=== PATIENT | male | born 1950 | race Asian ===

== ENCOUNTER 2016-09-14 10:40 | Outpatient (CLI) | payer OTHER ==
[2016-09-14 10:59] LABS: PLATELET COUNT 135 K/uL (142-355)
== END 2016-09-14 11:40 | disposition home or self-care (01) ==
LOC: LABW 10:40
PROVIDERS: Internal Medicine Nephrology
DX: N18.3 Chronic kidney disease, stage 3 (moderate) (principal); D63.1 Anemia in chronic kidney disease
CPT/HCPCS: 36415; 85027

== ENCOUNTER 2016-09-21 09:40 | Outpatient (CLI) | payer OTHER ==
[2016-09-21 10:26] LABS: PLATELET COUNT 132 K/uL (142-355)
== END 2016-09-21 21:26 | disposition home or self-care (01) ==
LOC: LABW 09:40
PROVIDERS: Internal Medicine Nephrology
DX: N18.3 Chronic kidney disease, stage 3 (moderate) (principal); D63.1 Anemia in chronic kidney disease
CPT/HCPCS: 36415; 85027

== ENCOUNTER 2016-09-28 09:38 | Outpatient (CLI) | payer OTHER ==
[2016-09-28 10:42] LABS: PLATELET COUNT 119 K/uL (142-355)
== END 2016-09-28 19:13 | disposition home or self-care (01) ==
LOC: LABW 09:38
PROVIDERS: Internal Medicine Nephrology
DX: N18.3 Chronic kidney disease, stage 3 (moderate) (principal); D63.1 Anemia in chronic kidney disease
CPT/HCPCS: 36415; 85027

== ENCOUNTER 2016-10-05 10:46 | Outpatient (CLI) | payer OTHER ==
[2016-10-05 11:19] LABS: PLATELET COUNT 134 K/uL (142-355)
== END 2016-10-05 19:08 | disposition home or self-care (01) ==
LOC: LABW 10:46
PROVIDERS: Internal Medicine Nephrology
DX: N18.3 Chronic kidney disease, stage 3 (moderate) (principal); D63.1 Anemia in chronic kidney disease
CPT/HCPCS: 36415; 85027

== ENCOUNTER 2016-10-12 12:32 | Outpatient (CLI) | payer OTHER ==
[2016-10-12 12:45] LABS: PLATELET COUNT 127 K/uL (142-355)
== END 2016-10-12 22:05 | disposition home or self-care (01) ==
LOC: LABW 12:32
PROVIDERS: Internal Medicine Nephrology
DX: N18.3 Chronic kidney disease, stage 3 (moderate) (principal); D63.1 Anemia in chronic kidney disease
CPT/HCPCS: 36415; 85027

== ENCOUNTER 2016-10-19 09:05 | Outpatient (CLI) | payer OTHER ==
[2016-10-19 09:19] LABS: PLATELET COUNT 113 K/uL (142-355)
== END 2016-10-19 19:01 | disposition home or self-care (01) ==
LOC: LABW 09:05
PROVIDERS: Internal Medicine Nephrology
DX: N18.3 Chronic kidney disease, stage 3 (moderate) (principal); D63.1 Anemia in chronic kidney disease
CPT/HCPCS: 36415; 85027

== ENCOUNTER 2016-10-26 10:32 | Outpatient (CLI) | payer OTHER ==
[2016-10-26 10:55] LABS: PLATELET COUNT 115 K/uL (142-355)
== END 2016-10-26 19:14 | disposition home or self-care (01) ==
LOC: LABW 10:32
PROVIDERS: Internal Medicine Nephrology
DX: N18.3 Chronic kidney disease, stage 3 (moderate) (principal); D63.1 Anemia in chronic kidney disease
CPT/HCPCS: 36415; 85027

== ENCOUNTER 2016-11-03 08:59 | Outpatient (CLI) | payer OTHER ==
[2016-11-03 09:54] LABS: PLATELET COUNT 115 K/uL (142-355)
== END 2016-11-03 19:28 | disposition home or self-care (01) ==
LOC: LABW 08:59 → US 08:59 → LABW 19:28
PROVIDERS: Internal Medicine Nephrology
DX: N18.3 Chronic kidney disease, stage 3 (moderate) (principal); D63.1 Anemia in chronic kidney disease; R22.1 Localized swelling, mass and lump, neck; M54.2 Cervicalgia
CPT/HCPCS: 36415; 85027

== ENCOUNTER 2016-11-27 09:36 | Outpatient (CLI) | payer OTHER ==
[2016-11-27 10:04] LABS: PLATELET COUNT 195 K/uL (142-355)
== END 2016-11-27 19:20 | disposition home or self-care (01) ==
LOC: LABW 09:36
PROVIDERS: Internal Medicine Nephrology
DX: N18.3 Chronic kidney disease, stage 3 (moderate) (principal); D63.1 Anemia in chronic kidney disease
CPT/HCPCS: 36415; 85027

== ENCOUNTER 2016-12-27 09:56 | Outpatient (CLI) | payer OTHER ==
[2016-12-27 10:04] LABS: PLATELET COUNT 128 K/uL (142-355)
== END 2016-12-27 19:05 | disposition home or self-care (01) ==
LOC: LABW 09:56
PROVIDERS: Internal Medicine Nephrology
DX: N18.3 Chronic kidney disease, stage 3 (moderate) (principal); D63.1 Anemia in chronic kidney disease
CPT/HCPCS: 36415; 85027

== ENCOUNTER 2017-02-01 10:51 | Outpatient (CLI) | payer OTHER ==
[2017-02-01 11:57] LABS: PLATELET COUNT 117 K/uL (142-355)
== END 2017-02-01 19:48 | disposition home or self-care (01) ==
LOC: LABW 10:51
PROVIDERS: Internal Medicine Nephrology
DX: N18.3 Chronic kidney disease, stage 3 (moderate) (principal); D63.1 Anemia in chronic kidney disease
CPT/HCPCS: 36415; 85027

== ENCOUNTER 2017-10-30 14:40 | Outpatient (CLI) | payer OTHER ==
[2017-10-30 15:16] LABS: PLATELET COUNT 130 K/uL (142-355)
== END 2017-10-30 19:51 | disposition home or self-care (01) ==
LOC: LAB 14:40
PROVIDERS: Nurse Practitioner Family
DX: I10 Essential (primary) hypertension (principal); G47.09 Other insomnia; F41.8 Other specified anxiety disorders; K21.9 Gastro-esophageal reflux disease without esophagitis; Z79.899 Other long term (current) drug therapy; Z51.81 Encounter for therapeutic drug level monitoring
CPT/HCPCS: 80053; 80061; 83036; 84436; 84443; 85027

== ENCOUNTER 2018-07-23 09:10 | Outpatient (CLI) | payer OTHER | END 2018-07-23 22:04 | disposition home or self-care (01) | LOC: US 09:10 | DX: N19 Unspecified kidney failure (principal) ==

== ENCOUNTER 2018-08-30 09:52 | Emergency (ER) | payer OTHER ==
[~2018-08-30] VITALS: Ht 172.7 cm; Wt 113.4 kg
[2018-08-30 10:26] LABS: PLATELET COUNT 124 K/uL (142-355)
[2018-08-30 10:41] LABS: POTASSIUM 2.6 mmol/L (3.6-5.2)
[2018-08-30 14:38] VITALS: BP 156/106; TEMP 98.6
== END 2018-08-30 14:38 | disposition home or self-care (01) ==
LOC: ED 09:52
PROVIDERS: Emergency Medicine
DX: I10 Essential (primary) hypertension (principal); R51 Headache
CPT/HCPCS: 36415; 80053; 85027; 99283

== ENCOUNTER 2019-01-15 10:01 | Outpatient (CLI) | payer OTHER | END 2019-01-15 22:24 | disposition home or self-care (01) | LOC: RAD 10:01 | DX: M54.2 Cervicalgia (principal); R22.1 Localized swelling, mass and lump, neck; N12 Tubulo-interstitial nephritis, not specified as acute or chronic ==

== ENCOUNTER 2019-02-20 09:10 | Outpatient (CLI) | payer OTHER ==
[2019-02-20 09:57] LABS: POTASSIUM 3.6 mmol/L (3.6-5.2)
[2019-02-20 09:58] LABS: PLATELET COUNT 116 K/uL (142-355)
== END 2019-02-20 19:41 | disposition home or self-care (01) ==
LOC: LABW 09:10
PROVIDERS: Internal Medicine Nephrology
DX: I12.9 Hypertensive chronic kidney disease with stage 1 through stage 4 chronic kidney disease, or unspecified chronic kidney disease (principal); N18.3 Chronic kidney disease, stage 3 (moderate); C61 Malignant neoplasm of prostate; M10.9 Gout, unspecified; F41.8 Other specified anxiety disorders; F32.89 Other specified depressive episodes; N13.8 Other obstructive and reflux uropathy
CPT/HCPCS: 36415; 80053; 82570; 82652; 83970; 84100; 84155; 84550; 85027

== ENCOUNTER 2019-10-31 10:24 | Emergency (ER) | payer OTHER ==
[~2019-10-31] VITALS: Ht 172.7 cm; Wt 108.9 kg
[2019-10-31 11:10] LABS: PLATELET COUNT 136 K/uL (142-355)
[2019-10-31 11:21] LABS: POTASSIUM 2.6 mmol/L (3.6-5.2)
[2019-10-31 12:58] VITALS: BP 129/87; TEMP 98.1
== END 2019-10-31 12:58 | disposition home or self-care (01) ==
LOC: ED 10:24
PROVIDERS: Family Medicine
DX: I10 Essential (primary) hypertension (principal); E87.6 Hypokalemia; M62.838 Other muscle spasm; N18.9 Chronic kidney disease, unspecified
CPT/HCPCS: 80053; 81000; 85027; 85379; 99283

== ENCOUNTER 2019-11-06 14:26 | Outpatient (CLI) | payer OTHER ==
[2019-11-06 15:07] LABS: PLATELET COUNT 101 K/uL (142-355)
[2019-11-06 15:31] LABS: POTASSIUM 3.2 mmol/L (3.6-5.2)
== END 2019-11-06 20:55 | disposition home or self-care (01) ==
LOC: LAB 14:26
PROVIDERS: Nurse Practitioner Family
DX: Z00.00 Encounter for general adult medical examination without abnormal findings (principal); R79.89 Other specified abnormal findings of blood chemistry; I10 Essential (primary) hypertension; K21.9 Gastro-esophageal reflux disease without esophagitis; F41.8 Other specified anxiety disorders; G47.09 Other insomnia; M25.50 Pain in unspecified joint; E55.9 Vitamin D deficiency, unspecified; F32.9 Major depressive disorder, single episode, unspecified; Z79.899 Other long term (current) drug therapy
CPT/HCPCS: 80053; 80061; 82306; 83036; 84439; 84443; 84481; 85027

== ENCOUNTER 2020-03-11 11:24 | Outpatient (CLI) | payer OTHER | END 2020-03-11 20:46 | disposition home or self-care (01) | LOC: LABW 11:24 | DX: E87.6 Hypokalemia (principal) | CPT/HCPCS: 36415; 84132 ==

== ENCOUNTER 2021-01-03 11:16 | Outpatient (CLI) | payer OTHER ==
[2021-01-03 11:46] LABS: PLATELET COUNT 99 K/uL (142-355)
[2021-01-03 11:52] LABS: POTASSIUM 2.8 mmol/L (3.6-5.2)
== END 2021-01-03 19:33 | disposition home or self-care (01) ==
LOC: LABW 11:16
PROVIDERS: ATTEND Specialist
DX: N19 Unspecified kidney failure (principal)
CPT/HCPCS: 36415; 80048; 85027

== ENCOUNTER 2021-05-03 11:51 | Outpatient (CLI) | payer OTHER ==
[2021-05-03 12:20] LABS: PLATELET COUNT 110 K/uL (142-355)
[2021-05-03 12:57] LABS: POTASSIUM 2.8 mmol/L (3.6-5.2)
== END 2021-05-03 22:14 | disposition home or self-care (01) ==
LOC: LABW 11:51
PROVIDERS: ATTEND Internal Medicine
DX: N18.4 Chronic kidney disease, stage 4 (severe) (principal); Z79.899 Other long term (current) drug therapy
CPT/HCPCS: 36415; 80053; 81000; 82306; 82330; 82607; 82728; 82746; 83036; 83540; 83550; 83735; 83970; 84100; 85027; 85652; 86038; 86430

== ENCOUNTER 2021-05-10 08:16 | Outpatient (CLI) | payer OTHER | END 2021-05-10 19:27 | disposition home or self-care (01) | LOC: US 08:16 | PROVIDERS: ATTEND Internal Medicine | DX: N18.4 Chronic kidney disease, stage 4 (severe) (principal) ==

== ENCOUNTER 2021-07-27 12:32 | Outpatient (CLI) | payer OTHER ==
[2021-07-27 12:52] LABS: PLATELET COUNT 110 K/uL (142-355)
[2021-07-27 13:04] LABS: POTASSIUM 2.7 mmol/L (3.6-5.2)
== END 2021-07-27 20:41 | disposition home or self-care (01) ==
LOC: LABW 12:32
PROVIDERS: ATTEND Internal Medicine
DX: N18.4 Chronic kidney disease, stage 4 (severe) (principal)
CPT/HCPCS: 36415; 80053; 81000; 82306; 82330; 82570; 83735; 83970; 84100; 84155; 85027

== ENCOUNTER 2021-11-22 11:01 | Outpatient (CLI) | payer OTHER | END 2021-11-22 19:02 | disposition home or self-care (01) | LOC: US 11:01 | PROVIDERS: ATTEND Specialist | DX: N19 Unspecified kidney failure (principal); N28.1 Cyst of kidney, acquired ==

== ENCOUNTER 2021-12-26 13:35 | Outpatient (CLI) | payer OTHER ==
[2021-12-26 14:02] LABS: PLATELET COUNT 99 K/uL (142-355)
[2021-12-26 15:05] LABS: POTASSIUM 2.7 mmol/L (3.6-5.2)
== END 2021-12-26 20:15 | disposition home or self-care (01) ==
LOC: LAB 13:35
PROVIDERS: ATTEND Nurse Practitioner Family
DX: N18.9 Chronic kidney disease, unspecified (principal); E53.8 Deficiency of other specified B group vitamins; R97.20 Elevated prostate specific antigen [PSA]
CPT/HCPCS: 80053; 84153; 85027

== ENCOUNTER 2022-01-16 16:20 | Outpatient (CLI) | payer OTHER ==
[2022-01-16 17:13] LABS: POTASSIUM 2.5 mmol/L (3.6-5.2)
[2022-01-16 17:37] LABS: PLATELET COUNT 106 K/uL (142-355)
== END 2022-01-16 19:10 | disposition home or self-care (01) ==
LOC: LAB 16:20
PROVIDERS: ATTEND Nurse Practitioner Family
DX: E87.6 Hypokalemia (principal); N18.4 Chronic kidney disease, stage 4 (severe)
CPT/HCPCS: 80053; 85027

== ENCOUNTER 2022-01-17 10:49 | Outpatient (CLI) | payer OTHER ==
[2022-01-17 11:17] LABS: PLATELET COUNT 108 K/uL (142-355)
[2022-01-17 14:26] LABS: POTASSIUM 2.1 mmol/L (3.6-5.2)
== END 2022-01-17 18:58 | disposition home or self-care (01) ==
LOC: LABW 10:49
PROVIDERS: ATTEND Internal Medicine
DX: N18.4 Chronic kidney disease, stage 4 (severe) (principal)
CPT/HCPCS: 36415; 80053; 81000; 82306; 82330; 82570; 83735; 83970; 84100; 84156; 85027

== ENCOUNTER 2022-01-31 09:43 | Outpatient (CLI) | payer OTHER ==
[2022-01-31 10:11] LABS: PLATELET COUNT 96 K/uL (142-355)
[2022-01-31 10:20] LABS: POTASSIUM 3.1 mmol/L (3.6-5.2)
== END 2022-01-31 19:28 | disposition home or self-care (01) ==
LOC: LABW 09:43
PROVIDERS: ATTEND Internal Medicine
DX: N18.4 Chronic kidney disease, stage 4 (severe) (principal)
CPT/HCPCS: 36415; 80053; 81000; 82306; 82330; 82570; 83735; 83970; 84100; 84156; 85027

== ENCOUNTER 2022-03-10 14:39 | Emergency (ER) | payer OTHER ==
[~2022-03-10] VITALS: Ht 172.7 cm; Wt 104.8 kg
[2022-03-10 14:46] VITALS: BP 140/86; TEMP 97.3
== END 2022-03-10 14:50 | disposition home or self-care (01) ==
LOC: ED 14:39
DX: Z53.21 Procedure and treatment not carried out due to patient leaving prior to being seen by health care provider (principal); Z01.31 Encounter for examination of blood pressure with abnormal findings